=== PATIENT | female | born 1970 | race Caucasian/White ===

== ENCOUNTER 2016-06-18 10:33 | Emergency (ER) | payer OTHER ==
[2016-06-18] MEDS ORDERED: Ketorolac INJ* 30 MG/ML 1 ML VIAL IV ONE ×2 (10:45→11:18)
[2016-06-18] MEDS ORDERED: Ondansetron INJ* 2 MG/ML VIAL IV ONE (10:45)
[2016-06-18] MEDS ORDERED: NS 0.9% 1000 ML* 2,000 ML IV ONE (10:45)
[2016-06-18] MEDS ORDERED: Cyclobenzaprine TAB* 10 MG PO ONE (10:53)
[2016-06-18] MEDS ORDERED: Ketorolac INJ* 60 MG/2 ML VIAL IM ONE (10:53)
[2016-06-18 11:32] LABS: Urine Bilirubin Negative (Negative); Urine Glucose Negative (Negative); Urine Nitrite Negative (Negative)
--- NOTE | 2016-06-18 12:29 | ED ---
Back Pain - HPI Summary HPI Summary: Patient presents with 1.5 weeks of worsening low back pain after heavy lifting. 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 She thought it would improve but her pain now radiates down her right buttock and upper posterior thigh. She denies incontinence of urine or stool, N/T or difficulty ambulating. - History of Current Complaint Chief Complaint: EDBackInjuryPain Stated Complaint: RT LOWER BACK PAIN Time Seen by Provider: 06/18/16 10:40 Hx Obtained From: Patient Hx Last Menstrual Period: 2014 Onset/Duration: Gradual Onset, Lasting Weeks, Worse Since - 1.5 weeks ago Timing: Constant Severity Initially: Moderate Severity Currently: Severe Pain Intensity: 9 Character: Aching, Stiffness Alleviating Symptom(s): Nothing Associated Signs And Symptoms: Positive: Negative - Allergies/Home Medications Allergies/Adverse Reactions: Allergies Allergy/AdvReac Type Severity Reaction Status Date / Time environmental Allergy Congestion Uncoded 07/14/15 15:27 PMH/Surg Hx/FS Hx/Imm Hx Respiratory History: Reports: Hx Asthma - Cancer History Cancer Type, Location and Year: uterine CA - Surgical History Surgery Procedure, Year, and Place: gallbladder 2008, hernia, Infectious Disease History: No Infectious Disease History: Denies: Traveled Outside the [place] in Last 30 Days - Family History Known Family History: Positive: None - Social History Occupation: Employed Full-time Lives: With Family Alcohol Use: None Substance Use Type: Reports: Marijuana Substance Use Comment - Amount & Last Used: last night Smoking Status (MU): Light Every Day Tobacco Smoker Type: Cigarettes Amount Used/How Often: 1/4 PK DAILY Cessation Counseling: Patient Advised to Stop Review of Systems Positive: Myalgia. Negative: Decreased ROM, Edema Negative: Weakness, Paresthesia, Numbness All Other Systems Reviewed And Are Negative: Yes Physical Exam Vital Signs On Initial Exam: Initial Vitals Temp Pulse Resp BP Pulse Ox 97.7 F 93 20 135/82 100 06/18/16 10:34 06/18/16 10:34 06/18/16 10:34 06/18/16 10:34 06/18/16 10:34 Vital Signs Reviewed: Yes Appearance: Positive: Well-Appearing, Well-Nourished, Pain Distress Skin: Positive: Warm, Skin Color Reflects Adequate Perfusion, Dry, Soft Head/Face: Positive: Normal Head/Face Inspection Eyes: Positive: EOMI, MARKY, Conjunctiva Clear ENT: Positive: Hearing grossly normal Neck: Positive: Supple, Nontender Respiratory/Lung Sounds: Positive: Breath Sounds Present Cardiovascular: Positive: RRR Musculoskeletal: Positive: Strength/ROM Intact, Pain @ - TTP right SI joint distally over right buttock Neurological: Positive: Sensory/Motor Intact, Alert, Oriented to Person Place, Time, NV Bundle Intact Distally, Normal Gait Psychiatric: Positive: Affect/Mood Appropriate AVPU Assessment: Alert - Ek[place] Coma Scale Coma Scale Total: 15 Diagnostics - Vital Signs Vital Signs Temp Pulse Resp BP Pulse Ox 06/18/16 10:36 97.9 F 93 20 135/82 100 06/18/16 10:34 97.7 F 93 20 135/82 100 - Laboratory Lab Results: Lab Results 06/18/16 Range/Units 11:10 Urine Color Straw Urine Appearance Clear Urine pH 5.0 (5-9) Ur Specific Boomer 1.004 L (1.010-1.030) Urine Protein Negative (Negative) Urine Ketones Negative (Negative) Urine Blood Negative (Negative) Urine Nitrate Negative (Negative) Urine Bilirubin Negative (Negative) Urine Urobilinogen Negative (Negative) Ur Leukocyte Esterase Negative (Negative) Urine Glucose Negative (Negative) Lab Statement: Any lab studies that have been ordered have been reviewed, and results considered in the medical decision making process. Re-Evaluation - Re-Evaluation First Eval Re-Evaluation Time: 12:15 Change: Improved Comment: pain has improved Back Pain Course/Dx - Diagnoses Differential Diagnosis/HQI/PQRI: Positive: Arthritis, Cauda Equina Syndrome, Herniated Disc, Strain, Sprain Provider Diagnoses: Low back strain Discharge - Discharge Plan Condition: Stable Disposition: HOME Prescriptions: Cyclobenzaprine TAB* [Flexeril 10 MG TAB*] 10 mg PO TID PRN #15 tab PRN Reason: Pain Patient Education Materials: Low Back Strain (ED) Forms: *Work Release Referrals: Thor HARPER,Demetri Norwood [Primary Care Provider] - Additional Instructions: Please begin using 600mg of ibuprofen tomorrow at lunch three times daily with meals for the next 3-5 days. Use the muscle relaxer with heat or ice, whichever feels best, as well. Rest often. Follow-up with your primary care provider in 3- 5 days for re-evaluation to discuss possible physical therapy referral. Return to the emergency department if symptoms worsen.
[2016-06-18 12:38] VITALS: BP 118/63
== END 2016-06-18 12:36 | disposition home or self-care (01) ==
LOC: ED 10:33
DX: S39.012A Strain of muscle, fascia and tendon of lower back, initial encounter (principal); F17.210 Nicotine dependence, cigarettes, uncomplicated; X50.0XXA Overexertion from strenuous movement or load, initial encounter; Y93.H3 Activity, building and construction; Y92.9 Unspecified place or not applicable; J45.909 Unspecified asthma, uncomplicated
CPT/HCPCS: 81003; 96360; 96372; 96374; 96375; 99282; A9270-GY; J1885

== ENCOUNTER 2016-08-06 13:47 | Emergency (ER) | payer OTHER ==
[2016-08-06 14:05] VITALS: BP 123/84
--- NOTE | 2016-08-06 14:26 | UC ---
Anna Morley Claudia, scribed for Mark Lyn MD on 08/06/16 at 1411 . Complaint Female HPI - HPI Summary HPI Summary: 46 year old female presents to the [facility] with lower back pain. Pt states 10/10 on pain scale. She also admits to associated Sx of dysuria, increase in urinary frequency and urgency, intermittent fevers, abd pain and NVD. She states movement aggravates her pain and rest/ibuprofen somewhat alleviates the pain. She notes the pain has been intermittent over the past 2 weeks. She states it occasionally radiates up her back. - History Of Current Complaint Chief Complaint: UCGU Stated Complaint: BACK PAIN Time Seen by Provider: 08/06/16 14:06 Hx Obtained From: Patient Hx Last Menstrual Period: ablation Onset/Duration: Gradual Onset, Lasting Weeks, Still Present Timing: Intermittent Pain Scale Used: 0-10 Numeric - 10/10 Associated Signs And Symptoms: Positive: Fever, Back Pain, Nausea - Allergies/Home Medications Allergies/Adverse Reactions: Allergies Allergy/AdvReac Type Severity Reaction Status Date / Time environmental Allergy Congestion Uncoded 08/06/16 14:06 PMH/Surg Hx/FS Hx/Imm Hx Previously Healthy: Yes Other GI/ History: Chrons - Surgical History Surgical History: Yes Surgery Procedure, Year, and Place: gallbladder 2008, hernia, - Family History Known Family History: Positive: Hypertension, Diabetes Family History: colitis - Social History Occupation: Employed Full-time Alcohol Use: None Substance Use Type: None Substance Use Comment - Amount & Last Used: last night Smoking Status (MU): Light Every Day Tobacco Smoker Type: Cigarettes Amount Used/How Often: 1/4 PK DAILY Review of Systems Constitutional: Fever Skin: Negative Eyes: Negative ENT: Negative Respiratory: Negative Cardiovascular: Negative Gastrointestinal: Vomiting Genitourinary: Dysuria, Frequency, Urgency Motor: Negative Neurovascular: Negative Musculoskeletal: Other: - BACK PAIN Neurological: Negative Psychological: Negative All Other Systems Reviewed And Are Negative: Yes Physical Exam Triage Information Reviewed: Yes Appearance: Well-Appearing, No Pain Distress, Well-Nourished Vital Signs: Initial Vital Signs Temp 99.3 F 08/06/16 14:00 Pulse 89 08/06/16 14:00 Resp 20 08/06/16 14:00 BP 123/84 08/06/16 14:00 Pulse Ox 99 08/06/16 14:00 Vital Signs Reviewed: Yes Eyes: Positive: Conjunctiva Clear ENT: Positive: Normal ENT inspection, Hearing grossly normal, Pharynx normal Neck: Positive: Supple, Nontender, No Lymphadenopathy Respiratory: Positive: Chest non-tender, Lungs clear, Normal breath sounds Cardiovascular: Positive: RRR, No Murmur, Pulses Normal Abdominal Exam: Normal Abdomen Description: Positive: Nontender, Soft. Negative: CVA Tenderness (R), CVA Tenderness (L), Distended, Guarding Bowel Sounds: Positive: Present Neurological: Positive: Other: - lower back : + tenderness mid lower back , no swelling , no erythema, good ROM on flexion and extension Complaint Female Dx - Differential Dx/Diagnosis Provider Diagnoses: lower back strain. dysuria Discharge - Discharge Plan Condition: Stable Disposition: HOME Prescriptions: Cyclobenzaprine TAB* [Flexeril 10 MG TAB*] 10 mg PO BID PRN #20 tab PRN Reason: Pain Sulfamethox/Trimethoprim DS* [Bactrim DS 800/160 TAB*] 1 tab PO BID #14 tab Patient Education Materials: Low Back Strain (ED), Dysuria (ED) Referrals: Thor HARPER,Demetri Norwood [Primary Care Provider] - 7 Days Additional Instructions: send the urine for culture , call the office in 2 days for the results take tylenol as needed for pain and flexeril 2 x per day as needed The documentation as recorded by the Anna frye Claudia accurately reflects the service I personally performed and the decisions made by , Mark Lyn MD.
== END 2016-08-06 14:33 | disposition home or self-care (01) ==
LOC: UCEAST 13:47
DX: S39.012A Strain of muscle, fascia and tendon of lower back, initial encounter (principal); X58.XXXA Exposure to other specified factors, initial encounter; R30.0 Dysuria; F17.210 Nicotine dependence, cigarettes, uncomplicated
CPT/HCPCS: 81003; 87086; 99212; G0463

== ENCOUNTER 2017-05-02 10:28 | Emergency (ER) | payer OTHER ==
[2017-05-02 11:44] VITALS: BP 122/66
[2017-05-02] MEDS ORDERED: cefTRIAXone VIAL(*) 250 MG VIAL IM ONE (12:22)
[2017-05-02] MEDS ORDERED: Azithromycin TAB* 250 MG PO ONE (12:22)
[2017-05-02] MEDS ORDERED: Lidocaine 1% MPF* 2 ML VIAL ONE (12:27)
--- NOTE | 2017-05-02 12:27 | UC ---
Complaint Female HPI - HPI Summary HPI Summary: 46 year old female with pink eye and vaginal discharge. [place] eye for a few days. vaginal discharge for 1-2 months. purulent and copious. no fever. no new sexual partners. no history of STD per pt. has vaginal tenderness. mild itch . no significant smell she states. has had relations in the past with both men and women and not sure if any exposure to STDs. no urinary concerns. - History Of Current Complaint Chief Complaint: UCEye Stated Complaint: BILATERAL EYE COMP AND PERSONAL Time Seen by Provider: 05/02/17 11:47 Hx Obtained From: Patient Hx Last Menstrual Period: albation ?: No Onset/Duration: Gradual Onset Timing: Constant Severity Initially: Moderate Severity Currently: Moderate Pain Intensity: 7 Aggravating Factor(s): [place] Associated Signs And Symptoms: Positive: Vaginal Discharge - Allergies/Home Medications Allergies/Adverse Reactions: Allergies Allergy/AdvReac Type Severity Reaction Status Date / Time environmental Allergy Congestion Uncoded 05/02/17 11:45 Home Medications: Home Medications Ibuprofen TAB* [Motrin TAB* 600 MG] 600 mg PO Q6H PRN 05/02/17 [History Confirmed 05/02/17] PMH/Surg Hx/FS Hx/Imm Hx Previously Healthy: Yes - Surgical History Surgical History: Yes Surgery Procedure, Year, and Place: gallbladder 2008, hernia,. ABLATION WITH REMOVAL OF UTERINE TUMOR - Family History Known Family History: Positive: None, Hypertension, Diabetes Family History: colitis - Social History Alcohol Use: None Substance Use Type: Marijuana Substance Use Comment - Amount & Last Used: TWO YEARS OPIATE CLEAN Smoking Status (MU): Former Smoker Type: Cigarettes Amount Used/How Often: 1/4 PK DAILY Have You Smoked in the Last Year: Yes When Did the Patient Quit Smoking/Using Tobacco: 3 WEEKS AGO Review of Systems Eyes: Drainage, Eye Redness Is Patient Immunocompromised?: No All Other Systems Reviewed And Are Negative: Yes Physical Exam Triage Information Reviewed: Yes Appearance: Well-Appearing, No Pain Distress, Well-Nourished Vital Signs: Initial Vital Signs Temp 98.3 F 05/02/17 11:36 Pulse 76 05/02/17 11:36 Resp 14 05/02/17 11:36 BP 122/66 05/02/17 11:36 Pulse Ox 95 05/02/17 11:36 Vital Signs Reviewed: Yes Eyes: Positive: Conjunctiva Inflamed - L> R, Discharge - L> R purulent ENT Exam: Normal Neck: Positive: 1 Respiratory Exam: Normal Cardiovascular Exam: Normal Abdominal Exam: Normal Pelvic Exam: Positive: Cervicitis, Discharge - green purulent, Tender w/ Cervical Motion - mild right side, Other - copious green purulent discharge. Negative: No Masses, Active Bleeding, Blood, Lesions, Mass Musculoskeletal Exam: Normal Neurological Exam: Normal Psychological Exam: Normal Skin Exam: Normal - Additional Comments Kristy Madrid present Complaint Female Dx - Course Course Of Treatment: Treat for GC / Ch at this time. Test for STD as well. Given rocephin and azithromycin here. Cover eye discharge for this as well with cipro as she may have touched her vaginal area and then her eyes . she is aware of SE of antibiotics and aware of safe sexual practices - Differential Dx/Diagnosis Differential Diagnosis/HQI/PQRI: Sexually Transmitted Disease Provider Diagnoses: 1) bacterial conjunctivitis. 2) presumed gonorrhea/ chlamydia Discharge - Sign-Out/Discharge Documenting (check all that apply): Discharge - Discharge Plan Condition: Good Disposition: HOME Prescriptions: Ciprofloxacin 0.3% OPTH.FEDERICO* [Cipro 0.3% Opth*] 1 drop BOTH EYES SEE INSTRUCTIONS #1 btl Patient Education Materials: Conjunctivitis (ED), Cervicitis (ED) Referrals: Bridgette Goodrich MD [Primary Care Provider] - 4 Days Additional Instructions: You were given antibiotics to presumably treat gonorrhea / chlamydia . If you develop worsening pain or fever then please go to the emergency room - Billing Disposition and Condition Condition: GOOD Disposition: HOME
--- NOTE | 2017-05-04 07:33 | UC ---
- Progress Note Progress Note: (+) trich take metronidazole 2 grams x 1 sexual partners should be treated Discharge - Sign-Out/Discharge Documenting (check all that apply): Discharge - Discharge Plan Condition: Good Disposition: HOME Prescriptions: Ciprofloxacin 0.3% OPTH.FEDERICO* [Cipro 0.3% Opth*] 1 drop BOTH EYES SEE INSTRUCTIONS #1 btl Patient Education Materials: Cervicitis (ED), Conjunctivitis (ED) Referrals: Bridgette Goodrich MD [Primary Care Provider] - 4 Days Additional Instructions: You were given antibiotics to presumably treat gonorrhea / chlamydia . If you develop worsening pain or fever then please go to the emergency room - Billing Disposition and Condition Condition: GOOD Disposition: HOME
== END 2017-05-02 12:57 | disposition home or self-care (01) ==
LOC: UCCORT 10:28
DX: H10.89 Other conjunctivitis (principal); A59.01 Trichomonal vulvovaginitis; Z32.02 Encounter for pregnancy test, result negative; Z87.891 Personal history of nicotine dependence
CPT/HCPCS: 36415; 81003; 84702; 86592; 86703; 86706; 86803; 87086; 87480; 87491; 87510; 87591; 87661; 96372; 99212; A9270-GY; G0463; J0696

== ENCOUNTER 2017-11-28 16:55 | Emergency (ER) | payer OTHER ==
[2017-11-28 18:06] VITALS: BP 120/62
--- NOTE | 2017-11-28 18:17 | UC ---
Respiratory Complaint HPI - HPI Summary HPI Summary: Pt c/o cough, chest congestion, generalized malaise X 2 weeks. - History of Current Complaint Chief Complaint: UCRespiratory Stated Complaint: SOB, COUGH Time Seen by Provider: 11/28/17 18:10 Hx Obtained From: Patient Hx Last Menstrual Period: albation ?: No Onset/Duration: Gradual Onset, Lasting Weeks, Still Present Timing: Constant Severity Initially: Mild Severity Currently: Moderate Pain Intensity: 7 Character: Cough: Nonproductive Aggravating Factors: Exertion, Deep Breaths, Recumbent Position Alleviating Factors: Nothing Associated Signs And Symptoms: Positive: Chills, Wheezing, URI - Risk Factors Pulmonary Embolism Risk Factors: Smoking Cardiac Risk Factors: Smoking Pseudomonas Risk Factors: Negative Tuberculosis Risk Factors: Negative - Allergies/Home Medications Allergies/Adverse Reactions: Allergies Allergy/AdvReac Type Severity Reaction Status Date / Time environmental Allergy Congestion Uncoded 11/28/17 18:06 PMH/Surg Hx/FS Hx/Imm Hx Previously Healthy: Yes - Surgical History Surgical History: Yes Surgery Procedure, Year, and Place: gallbladder 2008, hernia,. ABLATION WITH REMOVAL OF UTERINE TUMOR - Family History Known Family History: Positive: Hypertension, Diabetes Family History: colitis - Social History Occupation: Employed Full-time Lives: With Family Alcohol Use: None Substance Use Type: Marijuana Substance Use Comment - Amount & Last Used: TWO YEARS OPIATE CLEAN Smoking Status (MU): Former Smoker Type: Cigarettes Amount Used/How Often: 1/4 PK DAILY Have You Smoked in the Last Year: Yes When Did the Patient Quit Smoking/Using Tobacco: 3 WEEKS AGO Review of Systems Constitutional: Fatigue Skin: Negative Eyes: Negative ENT: Negative Respiratory: Cough Cardiovascular: Negative Gastrointestinal: Negative Genitourinary: Negative Motor: Negative Neurovascular: Negative Musculoskeletal: Myalgia Neurological: Negative Psychological: Negative Is Patient Immunocompromised?: No All Other Systems Reviewed And Are Negative: Yes Physical Exam Triage Information Reviewed: Yes Appearance: Ill-Appearing Vital Signs: Initial Vital Signs Temp 98.6 F 11/28/17 18:01 Pulse 89 11/28/17 18:01 Resp 18 11/28/17 18:01 BP 120/62 11/28/17 18:01 Pulse Ox 100 11/28/17 18:01 Vital Signs Reviewed: Yes Eye Exam: Normal ENT Exam: Other ENT: Positive: Nasal congestion, Sinus tenderness Dental Exam: Normal Neck exam: Normal Respiratory Exam: Other Respiratory: Positive: Decreased breath sounds Cardiovascular Exam: Normal Musculoskeletal Exam: Normal Neurological Exam: Normal Psychological Exam: Normal Skin Exam: Normal Diagnostic Evaluation - Laboratory O2 Sat by Pulse Oximetry: 100 Respiratory Course/Dx - Differential Dx/Diagnosis Differential Diagnosis/HQI/PQRI: Bronchitis Provider Diagnoses: bronchitis Discharge - Sign-Out/Discharge Documenting (check all that apply): Patient Departure All imaging exams completed and their final reports reviewed: No Studies - Discharge Plan Condition: Stable Disposition: HOME Prescriptions: Albuterol HFA INHALER* [Ventolin HFA Inhaler*] 1 - 2 puff INH Q4H PRN #1 mdi PRN Reason: Sob/Wheezing Azithromycin TAB* [Zithromax TAB (Z-JOSÉ) 250 mg #6 tabs] 2 tab PO .TODAY, THEN 1 DAILY #1 josé Benzonatate CAP* [Tessalon 100 MG CAP*] 100 mg PO Q8H PRN #30 cap PRN Reason: Cough Guaifenesin/Pseudoephedrne HCl [Mucinex D ER 600-60 mg Tablet] 1 each PO Q12H # 14 tab.er.12h predniSONE TAB* [Deltasone 20 MG TAB*] 20 mg PO DAILY #4 tab Patient Education Materials: Acute Bronchitis (ED) Referrals: Bridgette Goodrich MD [Primary Care Provider] - If Needed - Billing Disposition and Condition Condition: STABLE Disposition: Home
== END 2017-11-28 18:27 | disposition home or self-care (01) ==
LOC: UCCORT 16:55
DX: J40 Bronchitis, not specified as acute or chronic (principal); J30.2 Other seasonal allergic rhinitis; F12.90 Cannabis use, unspecified, uncomplicated; F11.11 Opioid abuse, in remission; Z87.891 Personal history of nicotine dependence
CPT/HCPCS: 99212; G0463

== ENCOUNTER 2018-02-10 11:53 | Emergency (ER) | payer OTHER ==
[2018-02-10 12:05] VITALS: BP 110/73
--- NOTE | 2018-02-10 14:24 | UC ---
Respiratory Complaint HPI - HPI Summary HPI Summary: Pt c/o chest congestion, malaise, wheezing, fever x 4 days. Pt quit smoking " a couple months ago" - History of Current Complaint Chief Complaint: UCRespiratory Stated Complaint: CHEST PAIN, TROUBLE BREATHING Time Seen by Provider: 02/10/18 14:20 Hx Obtained From: Patient Hx Last Menstrual Period: n/a ablation ?: No Onset/Duration: Sudden Onset, Lasting Days, Still Present, Worse Since - onset Timing: Constant Severity Initially: Mild Severity Currently: Moderate Pain Intensity: 0 Character: Cough: Productive Aggravating Factors: Exertion, Deep Breaths, Recumbent Position Alleviating Factors: Nothing Associated Signs And Symptoms: Positive: Fever, Chills, Wheezing, URI, Nasal Congestion - Risk Factors Pulmonary Embolism Risk Factors: Negative Cardiac Risk Factors: Negative Pseudomonas Risk Factors: Negative Tuberculosis Risk Factors: Negative - Allergies/Home Medications Allergies/Adverse Reactions: Allergies Allergy/AdvReac Type Severity Reaction Status Date / Time environmental Allergy Congestion Uncoded 02/10/18 12:05 PMH/Surg Hx/FS Hx/Imm Hx Previously Healthy: Yes - Surgical History Surgical History: Yes Surgery Procedure, Year, and Place: gallbladder 2008, hernia,. ABLATION WITH REMOVAL OF UTERINE TUMOR - Family History Known Family History: Positive: None, Hypertension, Diabetes Family History: colitis - Social History Lives: Alone Alcohol Use: None Substance Use Type: Marijuana Substance Use Comment - Amount & Last Used: 3 years clean opiates Smoking Status (MU): Former Smoker Type: Cigarettes Amount Used/How Often: 1/4 PK DAILY Have You Smoked in the Last Year: Yes When Did the Patient Quit Smoking/Using Tobacco: 2 months ago Review of Systems All Other Systems Reviewed And Are Negative: Yes Constitutional: Positive: Fever, Chills, Fatigue Skin: Positive: Negative Eyes: Positive: Negative ENT: Positive: Sinus Congestion Respiratory: Positive: Cough Cardiovascular: Positive: Negative Gastrointestinal: Positive: Negative Genitourinary: Positive: Negative Motor: Positive: Negative Neurovascular: Positive: Negative Musculoskeletal: Positive: Negative Neurological: Positive: Negative Psychological: Positive: Negative Is Patient Immunocompromised?: No Physical Exam Triage Information Reviewed: Yes Appearance: Ill-Appearing Vital Signs: Initial Vital Signs Temp 97.1 F 02/10/18 12:01 Pulse 88 02/10/18 12:01 Resp 18 02/10/18 12:01 BP 110/73 02/10/18 12:01 Pulse Ox 98 02/10/18 12:01 Vital Signs Reviewed: Yes Eye Exam: Normal ENT: Positive: Nasal congestion Dental Exam: Normal Neck exam: Normal Respiratory: Positive: Decreased breath sounds, Wheezing Cardiovascular Exam: Normal Musculoskeletal Exam: Normal Neurological Exam: Normal Psychological Exam: Normal Skin Exam: Normal UC Diagnostic Evaluation - Laboratory O2 Sat by Pulse Oximetry: 98 Respiratory Course/Dx - Differential Dx/Diagnosis Differential Diagnosis/HQI/PQRI: Bronchitis, Influenza Provider Diagnosis: Bronchitis Discharge - Sign-Out/Discharge Documenting (check all that apply): Patient Departure All imaging exams completed and their final reports reviewed: No Studies - Discharge Plan Condition: Stable Disposition: HOME Prescriptions: Azithromycin TAB* [Zithromax TAB (Z-JOSÉ) 250 mg #6 tabs] 2 tab PO .TODAY, THEN 1 DAILY #1 josé Benzonatate CAP* [Tessalon 100 MG CAP*] 200 mg PO Q8H PRN #30 cap PRN Reason: Cough predniSONE TAB* [Deltasone 10 MG TAB*] 30 mg PO DAILY #12 tab Patient Education Materials: Acute Bronchitis (ED) Referrals: Bridgette Goodrich MD [Primary Care Provider] - 2 Days - Billing Disposition and Condition Condition: STABLE Disposition: Home - Attestation Statements Provider Attestation: I was available for consult. This patient was seen by the RYLIE. The patient was not presented to, seen by, or examined by me. -Neo
== END 2018-02-10 14:36 | disposition home or self-care (01) ==
LOC: UCCORT 11:53
DX: J40 Bronchitis, not specified as acute or chronic (principal); Z87.891 Personal history of nicotine dependence
CPT/HCPCS: 99201; G0463

== ENCOUNTER 2018-11-04 14:13 | Emergency (ER) | payer OTHER ==
--- NOTE | 2018-11-04 14:59 | UC ---
Skin Complaint HPI - HPI Summary HPI Summary: 48-year-old female who presents with a 2-1/2 month-old lump on her left upper arm outer aspect. She states to half years ago she accidentally got a nail in the inner portion of her left upper arm which she pulled out and it healed without difficulty. She did not seek treatment at time. Over the past 2-1/2 months she had noticed this lump under left upper outer arm which is nontender however she thinks in the past couple of weeks it has gotten bigger. She denies any fever or chills, no signs of illness. - History of Current Complaint Time Seen by Provider: 11/04/18 14:46 Stated Complaint: LUMP ON ARM Hx Obtained From: Patient Hx Last Menstrual Period: n/a ablation ?: No Onset/Duration: Gradual Onset Skin Exposure Onset/Duration: Weeks Ago - Started noticing it about 2 and half months ago but after the past 2 weeks it has gotten larger Timing: Constant Onset Severity: Mild Current Severity: Mild Location: Other - Left upper posterior arm. Character: Raised Aggravating Factor(s): Nothing Alleviating Factor(s): Nothing Associated Signs & Symptoms: Positive: Negative - Allergy/Home Medications Allergies/Adverse Reactions: Allergies Allergy/AdvReac Type Severity Reaction Status Date / Time No Known Allergies Allergy Verified 11/04/18 15:01 Home Medications: Home Medications NK [No Home Medications Reported] 11/04/18 [History Confirmed 11/04/18] PMH/Surg Hx/FS Hx/Imm Hx Previously Healthy: Yes Respiratory History: Asthma Cancer History: Other - Uterine cancer. - Surgical History Surgical History: Yes Surgery Procedure, Year, and Place: gallbladder 2008, hernia,. ABLATION WITH REMOVAL OF UTERINE TUMOR - Family History Known Family History: Positive: None, Hypertension, Diabetes Family History: colitis - Social History Occupation: Employed Full-time Alcohol Use: None Substance Use Type: Marijuana Substance Use Comment - Amount & Last Used: 3 years clean opiates Smoking Status (MU): Former Smoker Type: Cigarettes Amount Used/How Often: 1/4 PK DAILY Have You Smoked in the Last Year: Yes When Did the Patient Quit Smoking/Using Tobacco: 2 months ago Review of Systems All Other Systems Reviewed And Are Negative: Yes Skin: Positive: Other - Patient noticed a lump on her left upper outer arm 2 1/ 2 months ago which has progressively gotten bigger mostly in the past 2 weeks. Is Patient Immunocompromised?: No Physical Exam Triage Information Reviewed: Yes Appearance: Well-Appearing, No Pain Distress, Well-Nourished Vital Signs Reviewed: Yes Musculoskeletal Exam: Normal Musculoskeletal: Positive: Other: - Good peripheral pulses neuro sensation capillary refill, full range of motion. Neurological Exam: Normal Psychological Exam: Normal Skin: Positive: Other - Patient has a palpable lump in the left upper outer arm measuring approximately 2.5 cm in diameter, nontender, normal skin color, seems to be more in the soft tissue and not related to the bone. Course/Dx - Course Course Of Treatment: We do not have ultrasound available at this time of day. I referred the patient back to the physician referral service and the orthopedist on-call for further care. At this point time this may be a lipoma however it is not an acute infection or cellulitis. - Diagnoses Provider Diagnosis: Lump of skin of left upper extremity Discharge ED - Sign-Out/Discharge Documenting (check all that apply): Patient Departure All imaging exams completed and their final reports reviewed: No Studies - Discharge Plan Condition: Good Disposition: HOME Patient Education Materials: Soft Tissue Mass (ED) Referrals: No Primary Care Phys,NOPCP [Primary Care Provider] - [facility] [place] PHYSICIAN REFERRAL [Outside] Bradley Nieto MD [Medical Doctor] - Additional Instructions: Establish care with a primary care provider and follow-up with them or follow- up with an orthopedist for further care. - Billing Disposition and Condition Condition: GOOD Disposition: Home
[2018-11-04 15:07] VITALS: BP 105/59
== END 2018-11-04 15:09 | disposition home or self-care (01) ==
LOC: UCCORT 14:13
DX: R22.32 Localized swelling, mass and lump, left upper limb (principal); Z85.42 Personal history of malignant neoplasm of other parts of uterus; Z87.891 Personal history of nicotine dependence
CPT/HCPCS: 99211; G0463

== ENCOUNTER 2018-11-05 09:30 | Emergency (ER) | payer OTHER | END 2018-11-05 09:40 | disposition left against medical advice (07) | LOC: UCCORT 09:30 | DX: R22.32 Localized swelling, mass and lump, left upper limb (principal); Z53.21 Procedure and treatment not carried out due to patient leaving prior to being seen by health care provider ==

== ENCOUNTER 2019-02-23 06:42 | Day surgery (SDC) | payer OTHER ==
[~2019-02-23 06:42] MED LIST: Buffered Lidocaine 1% SYRIN* 1 ML/SYRINGE INTRADERM ONE; Famotidine IV* 10 MG/ML 2 ML (20 mg) IV ONE; Lactated Ringers 1000 ML Bag* 1,000 ML IV SCH
[2019-02-23] MEDS ORDERED: Bupivacaine 0.25% SDV PF* 10 ML VIAL INJ ONE (06:55)
[2019-02-23] MEDS ORDERED: ceFAZolin 2 GM PREMIX in ORs 2 GM/50 ML BAG ONE (07:06)
[2019-02-23] MEDS ORDERED: Buffered Lidocaine 1% SYRIN* 1 ML/SYRINGE INTRADERM ONE (07:07)
[2019-02-23] MEDS ORDERED: Famotidine IV* 10 MG/ML 2 ML (20 mg) ONE (07:07)
[2019-02-23] MEDS ORDERED: Lidocaine 2% PF * 5 ML VIAL ONE (07:18)
[2019-02-23] MEDS ORDERED: Dexamethasone IV* 4 MG/ML 1 ML (4 MG) ONE (07:18)
[2019-02-23] MEDS ORDERED: Propofol* 10 MG/ML 20 ML BTL ONE (07:18)
[2019-02-23] MEDS ORDERED: Ketorolac INJ* 30 MG/ML 1 ML VIAL ONE (07:18)
[2019-02-23] MEDS ORDERED: Ondansetron INJ* 2 MG/ML VIAL ONE (07:18)
[2019-02-23] MEDS ORDERED: KETAMINE HCL* 50 MG/ML 10 ML VIAL ONE (07:19)
[2019-02-23] MEDS ORDERED: Midazolam* 1 MG/ML 5 ML VIAL (5 MG) ONE (07:19)
[2019-02-23] MEDS ORDERED: fentaNYL* 50 MCG/ML 2 ML VIAL (100 MCG VIAL) ONE (07:19)
[2019-02-23] MEDS ORDERED: Lidocaine 1% w EPI 1:200,000* SDV 30 ML VIAL ONE (08:40)
[2019-02-23] MEDS ORDERED: EPHEDrine (Pressors)* 50 MG/ML VIAL ONE (08:46)
[2019-02-23] MEDS ORDERED: Ondansetron INJ* 2 MG/ML VIAL IV PRN (08:50)
[2019-02-23] MEDS ORDERED: Naloxone* 0.4 MG/ML 1 ML VIAL IV PRN (08:50)
[2019-02-23] MEDS ORDERED: Acetaminophen IV 1GM/100ML * 1,000 MG/100 ML VIAL IVPB ONE (08:50)
[2019-02-23 11:03] VITALS: BP 107/64
--- NOTE | 2019-02-23 20:38 | OP ---
DATE OF OPERATION: 02/23/19 - [facility] DATE OF : 70 SURGEON: Maxwell Zuniga MD OUT OF TOWN COLLECTION CLERK: JOEY Hernandez ANESTHESIOLOGIST: Dr. Ann. ANESTHESIA: General. PRE-OP DIAGNOSES: 1. Left carpal tunnel syndrome. 2. 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 3. Left cubital tunnel syndrome. 4. Left upper arm posterior lipoma. POST-OP DIAGNOSES: 1. Left carpal tunnel syndrome. 2. 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 3. Left cubital tunnel syndrome. 4. Left upper arm posterior lipoma. OPERATIVE PROCEDURE: 1. Left endoscopic carpal tunnel release. 2. Left median nerve decompression in the proximal forearm with release of the lacertus fibrosus. 3. Left in situ cubital tunnel release with excision of anconeus epitrochlearis muscle. 4. Left upper arm lipoma excision. INDICATIONS: Ms. Castrejon has the aforementioned conditions. We talked about treatment options, risks, and benefits. We had gotten an MRI of that mass in the radiology report and noted no atypical enhancement, so it just looks a straight forward lipoma. We had again talked about risks and benefits and she had wanted to proceed. ESTIMATED BLOOD LOSS: 2 mL. COMPLICATIONS: None. FINDINGS: See above and below. DESCRIPTION OF PROCEDURE: Ms. Castrejon was seen in the preoperative holding area. The correct site, side, and procedures were identified. We came back to the operating room. The arm was prepped and draped in the usual fashion and a time- out was performed. The elbow was flexed and I made an incision over the lipoma on the upper arm. Dissection was carried down and marginal excision was bluntly performed. The lipoma came out easily. Once I had fully excised that, I irrigated out the wound and just 2 mL of 1% lidocaine with epinephrine was put right into the wound, just right into the surgical area, nothing beyond the margins. The wound was then closed with 3-0 Vicryl and 3-0 Monocryl and Steri-Strips. It was dressed with some gauze and a Tegaderm. We then handed off all the instruments that have been used. Fresh drape was applied. I then made a 1-cm incision over the distal forearm. Dissection was carried down through the subcutaneous tissue. The distal antebrachial fascia was split transversally bluntly with the tenotomy scissors. A 2-pronged skin hook was applied underneath the fascia. The carpal tunnel was then dilated and then the MicroAire Endoscopic Carpal Tunnel System was introduced. Went ahead in the appropriate location, I elevated the blade and pulled back to release the transverse carpal ligament in its entirety. I then released the distal antebrachial fascia proximally with the tenotomy scissors. I confirmed the decompression and then the wound was irrigated out and closed with 4-0 Prolene and a Steri-Strip. I then made a 2-cm incision centered over the lacertus fibrosus. Dissection was carried down. Full-thickness flaps were raised off and retractors were placed. I then used the tenotomy scissors to release the entirety of the lacertus fibrosus and some fascia proximally and distally that was a traversing vessel, this was cauterized with the bipolar. At this point, the decompression was looking very nice. The wound was irrigated out and closed with a 3-0 Vicryl and 3-0 Monocryl and a Steri-Strip. I then abducted and externally rotated the arm. A 4-cm incision was made, centered over the cubital tunnel. Dissection was carried down. A prominent anconeus epitrochlearis muscle was identified. I released the fascia overlying the ulnar nerve just proximal to that. I then released the muscle off its origin of the epicondyle. I then released the fascia proximally all the way past the arcade of [place] with the use of an appendiceal retractor. I then excised the anconeus epitrochlearis muscle in its entirety. I then released the superficial FCU fascia. I split the 2 heads of the FCU and then released the subfascial layer. At this point, everything was looking very good. The nerve was nicely decompressed. There was no nerve instability. The wound was irrigated out. Hemostasis was obtained with the Bovie and the bipolar. The wound was irrigated out. The subcutaneous tissue was reapproximated with 3-0 Vicryl. The skin was closed with 3-0 Monocryl and Steri-Strips. 0.25% Marcaine was infiltrated around all of the operative areas. Soft dressings were applied and she was taken to the recovery room in stable condition. [id number]/[facility] #: [id number] HONG
== END 2019-02-23 11:05 | disposition home or self-care (01) ==
LOC: OR 06:42
PROVIDERS: ATTEND Orthopaedic Surgery Hand Surgery
DX: D17.22 Benign lipomatous neoplasm of skin and subcutaneous tissue of left arm (principal); G56.02 Carpal tunnel syndrome, left upper limb; G56.12 Other lesions of median nerve, left upper limb; G56.22 Lesion of ulnar nerve, left upper limb; J45.909 Unspecified asthma, uncomplicated; F41.8 Other specified anxiety disorders; K21.9 Gastro-esophageal reflux disease without esophagitis; K50.90 Crohn's disease, unspecified, without complications; K44.9 Diaphragmatic hernia without obstruction or gangrene
CPT/HCPCS: 88304; J0690; J1100; J1885; J2001; J2250; J2405; J2704; J3010; J3490